=== PATIENT | female | born 1980 | race Hispanic/Latino ===

== ENCOUNTER → 2019-05-07 | Day surgery (SDC) | payer SELFPAY ==
[~2019-05-07] MED LIST: BALANCED SALT SOLN (OPTH) 15 ML BTL IO ONE; FENTANYL CITRATE/PF 100MCG/2 ML INJ ONE; MIDAZOLAM HCL 2 MG/2 ML VIAL ONE; OR PHACO EYE KIT ONE; PREOP PHACO EYE KIT ONE
--- OUTSIDE RECORDS SUMMARY | 2019-05-07 10:15 | XMS REPORT ---
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 Allergies, Adverse Reactions, Alerts This patient has no known allergies or adverse reactions. Medications This patient has no known medications. Encounters Start Date/Time End Date/Time Encounter Type Admission Type Attending [facility] Facility Care Department Encounter ID 2019-10-10 00:00:00 2019-10-10 00:00:00 Outpatient [facility] [id number] 2019-06-21 00:00:00 2019-06-21 00:00:00 Outpatient [facility] [id number] 2019-06-14 00:00:00 2019-06-14 00:00:00 Outpatient [facility] [id number] 2019-04-22 13:46:43 2019-04-22 13:46:43 Outpatient [facility] [id number] 2019-04-22 13:02:19 2019-04-22 13:02:19 Outpatient [facility] [id number] 2019-04-22 00:00:00 2019-04-22 00:00:00 Outpatient [facility] [id number] 2019-04-10 12:34:14 2019-04-10 12:34:14 Outpatient [facility] [id number] 2019-04-10 12:34:02 2019-04-10 12:34:02 Outpatient [facility] [id number] 2019-04-09 00:00:00 2019-04-09 00:00:00 Outpatient [facility] [id number] 2019-04-09 00:00:00 2019-04-09 00:00:00 Outpatient [facility] [id number] 2019-04-03 10:25:48 2019-04-03 10:25:48 Outpatient [facility] [id number] 2019-03-28 09:31:23 2019-03-28 09:31:23 Outpatient [facility] [id number] 2019-01-07 11:12:00 2019-01-07 11:12:00 Outpatient [facility] [id number] 2019-01-07 00:00:00 2019-01-07 00:00:00 Outpatient [facility] [id number] 2019-01-01 14:36:09 2019-01-01 14:36:09 Outpatient [facility] [id number] 2018-09-13 08:04:33 2018-09-13 08:04:33 Outpatient [facility] [id number] 2018-09-13 07:41:56 2018-09-13 07:41:56 Outpatient [facility] [id number] 2018-07-26 13:14:27 2018-07-26 13:14:27 Outpatient [facility] [id number] 2018-04-01 00:00:00 2018-04-01 00:00:00 Outpatient [facility] [id number] 2018-03-28 08:39:44 2018-03-28 08:39:44 Outpatient [facility] [id number] 2018-03-26 10:07:31 2018-03-26 10:07:31 Outpatient [facility] [id number] 2018-03-26 09:04:16 2018-03-26 09:04:16 Outpatient [facility] [id number] 2018-01-16 00:00:00 2018-01-16 00:00:00 Outpatient [facility] [id number] 2018-01-16 00:00:00 2018-01-16 00:00:00 Outpatient [facility] [id number] 2017-10-26 13:21:48 2017-10-26 13:21:48 Outpatient [facility] [id number] 2017-03-06 08:35:08 2017-03-06 08:35:08 Outpatient [facility] [id number] 2017-02-28 10:14:16 2017-02-28 10:14:16 Outpatient [facility] [id number] 2017-01-27 09:13:40 2017-01-27 09:13:40 Outpatient [facility] [id number] 2017-01-27 08:09:02 2017-01-27 08:09:02 Outpatient [facility] [id number] 2017-01-24 13:36:29 2017-01-24 13:36:29 Outpatient [facility] [id number]
[2019-05-07 14:00] VITALS: BP 108/80
== END | disposition home or self-care (01) ==
LOC: OR 10:12
PROVIDERS: ATTEND Ophthalmology
DX: H25.12 Age-related nuclear cataract, left eye (principal)
CPT/HCPCS: 66984; 81025; J2250; J3010